=== PATIENT | male | born 1940 | race Caucasian/White ===

== ENCOUNTER 2018-03-13 10:39 | Emergency (ER) | payer MEDICARE, OTHER ==
[~2018-03-13] VITALS: Ht 172.7 cm; Wt 120.7 kg
[2018-03-13 10:49] VITALS: BP 148/82
== END 2018-03-13 12:21 | disposition home or self-care (01) ==
LOC: ED 11:30
DX: S39.012A Strain of muscle, fascia and tendon of lower back, initial encounter (principal); X58.XXXA Exposure to other specified factors, initial encounter; Y93.89 Activity, other specified; Y99.8 Other external cause status; Y92.89 Other specified places as the place of occurrence of the external cause
CPT/HCPCS: 70450; 72125; 99284